=== PATIENT | male | born 1985 | race Caucasian/White ===

== ENCOUNTER → 2022-09-08 | Outpatient (CLI) | payer OTHER ==
[~2022-09-08] MED LIST: CRS350T PO; CYCL10TA9 PO; IBUP200C8 PO; NAPR-243 PO
--- NOTE | 2022-09-08 14:09 | Diagnostic Imaging Report ---
EXAMINATION: Lumbar spine radiographs, 2 views. COMPARISON: None. HISTORY: 37-year-old male, low back pain. FINDINGS: There are 5 lumbar-type vertebral bodies. The alignment of lumbar spine is unremarkable. There are mild endplate degenerative changes of the thoracolumbar spine without notable disc height loss. There are mild bilateral facet degenerative changes at L5-S1. The sacral iliac joints are unremarkable in appearance. IMPRESSION: 1. Mild multilevel disc degenerative changes of the thoracolumbar spine. 2. Mild bilateral facet degenerative changes at L4-L5. Dictated by: Dictated on workstation # [id number]
--- NOTE | 2022-09-08 14:45 | Diagnostic Imaging Report ---
EXAMINATION: Left knee radiographs, 2 views. Right knee radiographs, 2 views. COMPARISON: None. HISTORY: 37-year-old male, bilateral knee pain. FINDINGS: There is no knee joint effusion. Joint spaces are well preserved. There is no acute fracture. IMPRESSION: 1. Unremarkable radiographs of the right and left knees. Dictated by: Dictated on workstation # [id number]
== END ==
LOC: RAD 10:16
PROVIDERS: ATTEND Family Medicine
DX: Z02.71 Encounter for disability determination (principal); M47.817 Spondylosis without myelopathy or radiculopathy, lumbosacral region; M47.816 Spondylosis without myelopathy or radiculopathy, lumbar region; M25.561 Pain in right knee; M25.562 Pain in left knee
CPT/HCPCS: 72100